=== PATIENT | female | born 1945 | race Caucasian/White ===

== ENCOUNTER 2016-09-23 09:58 | Emergency (ER) | payer MEDICARE, OTHER ==
[~2016-09-23] VITALS: Ht 154.9 cm; Wt 75.0 kg
[~2016-09-23 09:58] MED LIST: HYDR12.57 PO; LISI10TA3 PO; LOVA40TA PO; MELO-1 PO
[2016-09-23 10:00] VITALS: BP 136/71; PULSE 69; RESP 15; TEMP 97.9; O2SAT 98
--- NOTE | 2016-09-23 11:37 | RADRPT ---
EXAM DATE/TIME: 09/23/2016 11:33 [facility] COMPARISON: No previous studies available for comparison. INDICATIONS : Left knee pain after playing water polo last night. MEDICAL HISTORY : None. SURGICAL HISTORY : None. ENCOUNTER: Initial ACUITY: 2 days PAIN SCORE: 8/10 LOCATION: Left Knee. FINDINGS: Four view examination of the left knee demonstrates no evidence of fracture or dislocation. Bony min eralization is normal. The articular surfaces are intact. The suprapatellar soft tissues have a nor mal configuration. CONCLUSION: Negative for fracture or dislocation. Followup in 7-10 days is suggested if symptoms persist. Zachary Franco MD FACR on September 23, 2016 at 11:34 Board Certified Radiologist. This report was verified electronically.
--- NOTE | 2016-09-23 11:48 | PD ---
HPI Chief Complaint: Musculoskeletal Complaint Time Seen by Provider: 11:47 Travel History International Travel<30 days: No Contact w/Intl Traveler<30days: No Traveled to known affect area: No History of Present Illness HPI 70-year-old female presents to the emergency department with complaint of left hip pain and left knee pain after playing water polo last night. She is also complaining of a muscle spasm in her left mid back just below her scapula. Denies traumatic injury. Denies paresthesias, loss of sensation, decreased range of motion, decreased strength to the affected extremity. Has been ambulating on the affected extremity using a cane. Patient has leg length discrepancy that is normal for her secondary to past right hip surgery. Denies fever, chills, nausea, vomiting. Has tried using topical Naprosyn cream with some relief. Took Tylenol last night with some relief. Allergies to Crestor, codeine, penicillin, tramadol. History of hypertension and hypercholesterolemia. Dr. Crowder is primary care provider. No other modifying factors or associated signs and symptoms. PFSH Past Medical History Hypertension: Yes Social History Tobacco Use: No Allergies-Medications (Allergen,Severity, Reaction): Coded Allergies: CRESTOR (Verified Allergy, Intermediate, Muscle cramps, 09/23/16) Codeine (Verified Allergy, Intermediate, Vomiting, 09/23/16) Penicillin (Verified Allergy, Intermediate, Itching, 09/23/16) Tramadol (Verified Allergy, Intermediate, Itching, 09/23/16) Reported Meds & Prescriptions Reported Meds & Active Scripts Active Folding Walker/5" Wheels (Device) 1 Mis Mis 1 Ea .ROUTE DIRECTED Naproxen 500 Mg Tab 500 Mg PO BID PRN 7 Days Robaxin (Methocarbamol) 500 Mg Tab 500 Mg PO QID PRN Reported Lisinopril 10 Mg Tab 10 Mg PO DAILY Lovastatin 40 Mg Tab 40 Mg PO HS PRN Meloxicam 15 Mg Tab 15 Mg PO DAILY Hydrochlorothiazide 12.5 Mg Cap 12.5 Mg PO DAILY Review of Systems Except as stated in HPI: all other systems reviewed are Neg Physical Exam Narrative GENERAL: Well-nourished, well-developed elderly, female patient, in no acute distress SKIN: Warm and dry. HEAD: Atraumatic. Normocephalic. EYES: Pupils equal and round. No scleral icterus. No injection or drainage. ENT: Mucosa pink and moist. Airway patent. NECK: Trachea midline. CARDIOVASCULAR: Regular rate. RESPIRATORY: No accessory muscle use. GASTROINTESTINAL: Rounded. BACK: No midline point tenderness on palpation of the thoracic spine. Reproducible tenderness to the left trapezius muscle just below the left scapula. MUSCULOSKELETAL: Left knee is nonedematous, nonerythematous; with full range of motion and flexion to 90; no obvious deformity; the tenderness on palpation to medial and lateral aspects; joint intact with negative drawer test. Left hip is with tenderness on palpation; areas without erythema, edema, ecchymosis; with full range of motion; with tenderness on abduction; no obvious deformities. Leg length discrepancy; this is a normal finding for the patient per her report. Left lower extremity is supple and non-tense with 2+ pedal pulses and sensory intact without erythema or edema. No cyanosis. No clubbing. No obvious deformities. NEUROLOGICAL: Awake and alert. Oriented 3. No obvious cranial nerve deficits. Motor grossly within normal limits. Normal speech. PSYCHIATRIC: Appropriate mood and affect; insight and judgment normal. Data Data Last Documented VS Vital Signs Date Time Temp Pulse Resp B/P Pulse Ox O2 Delivery O2 Flow Rate FiO2 09/23/16 10:00 97.9 69 15 136/71 98 Orders Knee, Complete (4vws) (09/23/16 10:54) Hip, Uni(Ap&Lat) W Ap Pelvis (09/23/16 11:48) Ibuprofen (Motrin) (09/23/16 12:00) Methocarbamol (Robaxin) (09/23/16 12:30) Crutches (09/23/16 12:26) MDM Medical Decision Making Medical Screen Exam Complete: Yes Emergency Medical Condition: Yes Medical Record Reviewed: Yes Differential Diagnosis Muscle Strain, muscle spasm, muscle cramp, knee strain, hip strain Narrative Course 70-year-old female is ago exam consistent with left trapezius muscle spasm, left knee strain, and left hip strain after playing water polo yesterday. Denies traumatic injury. Ibuprofen and Robaxin administered in the ER. Left hip with pelvic x-ray and left knee x-ray with no acute findings. Crutches provided for support for home. Naproxen and Robaxin prescribed for home. Instructed patient to follow up if symptoms persist greater than 7-10 days and she verbalized understanding and agreement of treatment plan. Patient is medically cleared and stable for discharge. Discussed reasons to return to the emergency department. Instructed patient to follow up with primary care provider. Patient agrees with treatment plan. The patients vital signs are stable and the patient is stable for outpatient follow-up and treatment. Patient discharged home, stable and in no acute distress. Diagnosis Primary Impression: Strain of left hip Qualified Code: S76.012A - Strain of left hip, initial encounter Additional Impressions: Strain of left knee Qualified Code: S86.912A - Strain of left knee, initial encounter Spasm of thoracic back muscle Referrals: Primary Care Physician Patient Instructions: General Instructions, Hip Sprain (ED), Knee Sprain (ED), Muscle Spasm (ED) Additional Instructions: Tylenol or ibuprofen as needed and as directed to reduce pain and inflammation Robaxin as prescribed and as needed for muscle spasms Heating pad or cool compress to affected area to reduce pain and spasms Rest, ice, compress, and elevate extremity to decrease pain and inflammation Knee Brace for support Crutches and/or walker for support Avoid aggravating activity; increase activity as tolerated Follow-up with primary care provider Follow-up with orthopedic as needed Return to the emergency department immediately with worsening symptoms Med/Other Pt SpecificInfo: Prescription(s) given Scripts Folding Walker/5" Wheels 1 Mis Mis #1 Ea .route As Directed Prov:Yanira Mccullough 09/23/16 Naproxen 500 Mg [id number] Mg PO BID PRN (PAIN SCALE 1 TO 10) 7 Days Ref 0 Prov:Yanira Mccullough 09/23/16 Methocarbamol (Robaxin)500 Mg [id number] Mg PO QID PRN (MUSCLE SPASM) #30 TAB Ref 0 Prov:Yanira Mccullough 09/23/16 Disposition: DISCHARGE HOME Condition: Stable Yanira Mccullough Sep 23, 2016 11:47
[2016-09-23] MEDS ORDERED: IBUPROFEN 800 MG TAB PO ONE (12:00)
--- NOTE | 2016-09-23 12:22 | RADRPT ---
EXAM DATE/TIME: 09/23/2016 12:08 [facility] COMPARISON: No previous studies available for comparison. INDICATIONS : Left hip pain after swimming. MEDICAL HISTORY : None. SURGICAL HISTORY : Right total hip replacement. ENCOUNTER: Initial ACUITY: 2 days PAIN SCORE: 8/10 LOCATION: Left hip FINDINGS: There are degenerative changes evident. Alignment is anatomic. Fracture is not appreciated. CONCLUSION: Degenerative changes without fracture. Zachary Franco MD FACR on September 23, 2016 at 12:20 Board Certified Radiologist. This report was verified electronically.
[2016-09-23] MEDS ORDERED: ROBA500T PO ×2 (12:30→12:35)
[2016-09-23] MEDS ORDERED: NAPR500T PO ×2 (12:30→12:35)
[2016-09-23] MEDS ORDERED: METHOCARBAMOL 500 MG TAB PO ONE (12:30)
[2016-09-23] MEDS ORDERED: MISC-274 (12:35)
[2016-10-14] MEDS ORDERED: LOVA40TA PO (10:15)
[2016-10-14] MEDS ORDERED: LISI10TA3 PO (10:16)
[2016-10-14] MEDS ORDERED: HYDR12.57 PO (10:16)
[2016-10-23] MEDS ORDERED: LOVA40TA PO (12:32)
[2016-10-24] MEDS ORDERED: LOVA40TA PO (14:33)
[2016-11-10] MEDS ORDERED: CLIN1CAP6 PO (11:51)
== END 2016-09-23 13:14 | disposition home or self-care (01) ==
LOC: NEPB 09:58
DX: S76.012A Strain of muscle, fascia and tendon of left hip, initial encounter (principal); M62.838 Other muscle spasm; I10 Essential (primary) hypertension; X58.XXXA Exposure to other specified factors, initial encounter; Y93.69 Activity, other involving other sports and athletics played as a team or group
CPT/HCPCS: 73502; 73564; 99283; E0113

== ENCOUNTER 2017-02-04 10:46 | Emergency (ER) | payer MEDICARE ==
[~2017-02-04 10:46] MED LIST changes: +CLIN1CAP6 PO; +MISC-274; +NAPR500T PO; +ROBA500T PO
[2017-02-04 10:49] VITALS: BP 128/59; PULSE 90; RESP 20; TEMP 98.2; O2SAT 98
--- NOTE | 2017-02-04 11:12 | PD ---
Physical Exam Time Seen by Provider: 11:09 Narrative 71yo F c/o back pain, cough, sore throat, increased urination, dizziness for a few days. Took a clindamycin this morning for a dental appointment to day for a cleaning. Patient seen in triage. VS reviewed. Awaiting bed placement. Data Data Last Documented VS Vital Signs Date Time Temp Pulse Resp B/P Pulse Ox O2 Delivery O2 Flow Rate FiO2 02/04/17 10:49 98.2 90 20 128/59 98 Room Air MDM Supervised Visit with ANGELIC: Yanira Barraza Feb 04, 2017 11:12
--- NOTE | 2017-02-04 11:46 | PD ---
HPI . Cold symptoms Chief Complaint: Cold / Flu Symptoms Time Seen by Provider: 11:25 Travel History International Travel<30 days: No Contact w/Intl Traveler<30days: No Traveled to known affect area: No History of Present Illness HPI Patient presents with a 2 day history of cold symptoms. She states that it started with a sore throat. She also has nasal congestion, rhinorrhea, cough and myalgias, dizziness and frequency of urination. She does admit that she's been drinking a lot of fluid for her cold. She denies any dysuria or urgency. She states that her cough is productive of green to brown sputum. She describes her throat pain as constant and rates it as 5/10. She reports that she has been treating her cold with vitamin C, and [id number] cough syrup and lots of fluids. PFSH Past Medical History Cardiovascular Problems: Yes Diminished Hearing: No Hypertension: Yes Musculoskeletal: Yes Tetanus Vaccination: > 5 Years Influenza Vaccination: No ?: Not Menopausal: Yes Past Surgical History Cardiac Surgery: Yes Oral Surgery: Yes (right hip sx ) Pacemaker: Yes Other Surgery: Yes (mastectomy left side ) Social History Alcohol Use: Yes (ocassionally) Tobacco Use: No Substance Use: No Allergies-Medications (Allergen,Severity, Reaction): Coded Allergies: CRESTOR (Verified Allergy, Intermediate, swelling, 02/04/17) Codeine (Verified Allergy, Intermediate, swelling, 02/04/17) Penicillin (Verified Allergy, Intermediate, Itching, 11/10/16) Tramadol (Verified Allergy, Intermediate, Itching, 11/10/16) Reported Meds & Prescriptions Reported Meds & Active Scripts Active Lovastatin 40 Mg Tab 40 Mg PO HS Hydrochlorothiazide 12.5 Mg Cap 12.5 Mg PO DAILY Lisinopril 10 Mg Tab 10 Mg PO DAILY Reported Meloxicam 15 Mg Tab 15 Mg PO DAILY Review of Systems Except as stated in HPI: all other systems reviewed are Neg General / Constitutional: No: Fever, Chills HENT: Positive: Sore Throat, Congestion Respiratory: Positive: Cough, No: Shortness of Breath Gastrointestinal: No: Nausea, Vomiting, Diarrhea Genitourinary: Positive: Frequency, No: Urgency, Dysuria Musculoskeletal: Positive: Myalgias Physical Exam Narrative GENERAL: Awake and alert and in no acute distress. SKIN: Warm and dry. HEAD: Atraumatic. Normocephalic. EYES: Pupils equal and round. ENT: Scant mucopurulent discharge from the nose. Pharynx had no erythema, tonsillar enlargement or exudate. NECK: Trachea midline. No cervical lymphadenopathy. CARDIOVASCULAR: Regular rate and rhythm. RESPIRATORY: No accessory muscle use. Lungs sound clear with full air movement throughout. GASTROINTESTINAL: Abdomen soft, non-tender, nondistended. MUSCULOSKELETAL: No obvious deformities. No edema. NEUROLOGICAL: Awake and alert. No obvious cranial nerve deficits. Motor grossly within normal limits. Normal speech. PSYCHIATRIC: Appropriate mood and affect; insight and judgment normal. Data Data Last Documented VS Vital Signs Date Time Temp Pulse Resp B/P Pulse Ox O2 Delivery O2 Flow Rate FiO2 02/04/17 11:39 18 99 Room Air 02/04/17 10:49 98.2 90 128/59 Orders Group A Rapid Strep Screen (02/04/17 11:32) Strep Culture (Group A) (02/04/17 11:40) MDM Medical Decision Making Medical Screen Exam Complete: Yes Emergency Medical Condition: Yes Differential Diagnosis Differential diagnosis includes but is not limited to influenza, upper respiratory infection, bronchitis, pneumonia Narrative Course Patient presents for evaluation of cold symptoms. I have ordered a strep screen to rule out strep throat. Her exam is most consistent with a common cold. Rapid strep screen is negative. Diagnosis Primary Impression: Upper respiratory infection Qualified Code: J06.9 - Viral upper respiratory tract infection Patient Instructions: Cold Symptoms (ED), General Instructions Additional Instructions: I recommend the use of a Neti Pot. You may use a nasal spray such as Afrin for up to 3 days as needed for nasal congestion. You may take an zfey-nhs-[id number] antihistamine such as Zyrtec, Shabnam or Claritin as needed for runny secretions. You may take pseudoephedrine as needed for congestion. You will need to sign for this at the pharmacy. You may take plain Mucinex, 1200 mg twice a day as needed for thick secretions. You may take a cough syrup such as Delsym as needed for cough. Motrin as needed for fever and body aches. Throat lozenges/sprays as needed for sore throat. Warm salt water gargles for sore throat. Hot tea with lemon and honey also helps soothe a sore throat. Disposition: 01 DISCHARGE HOME Condition: Stable Oeters,Kristen Diamond MD Feb 04, 2017 11:46
[2017-02-04 12:29] VITALS: BP 120/67; TEMP 97.7
== END 2017-02-04 12:29 | disposition home or self-care (01) ==
LOC: NEPD 10:46
DX: J06.9 Acute upper respiratory infection, unspecified (principal); I10 Essential (primary) hypertension
CPT/HCPCS: 87081; 87880; 99283

== ENCOUNTER 2017-06-14 16:19 | Observation (INO) | payer MEDICARE ==
[~2017-06-14] VITALS: Ht 152.4 cm; Wt 73.6 kg
[~2017-06-14 16:19] MED LIST changes: -CLIN1CAP6 PO; -MISC-274; -NAPR500T PO; -ROBA500T PO
[2017-06-14 16:23] VITALS: BP 162/73; PULSE 94; RESP 16; TEMP 97.8; O2SAT 100
[2017-06-14] MEDS ORDERED: ASPIRIN 81 MG CHEW TAB PO ONE (19:00)
[2017-06-14] MEDS ORDERED: SODIUM CHLORIDE 0.9% FLUSH 10 ML FLUSH IVF PRN (19:00)
--- NOTE | 2017-06-14 19:03 | PD ---
HPI Chief Complaint: Pain: Acute or Chronic Time Seen by Provider: 18:53 Travel History International Travel<30 days: No Contact w/Intl Traveler<30days: No Traveled to known affect area: No History of Present Illness HPI 71-year-old female with history of hypertension, hyperlipidemia, pacemaker, followed by health and safety tech Dr. Urbina, here for an episode of chest discomfort. The patient reports that while shopping at around 4-4:30 PM this evening the patient experienced cramping sensation in her chest that radiated to her back and up into her jaw. This lasted for about an hour. She denies any known history of cardiac disease. At time of assessment she is pain-free. She became short of breath and slightly diaphoretic during this episode. No paresthesias or motor deficits. No fevers, chills, cough, or recent illness. No history of DVT or PE. PFSH Past Medical History Hx Anticoagulant Therapy: No Cardiovascular Problems: Yes (HTN, CHOL, PACER) High Cholesterol: Yes Diabetes: No Diminished Hearing: No Hypertension: Yes Musculoskeletal: Yes Tetanus Vaccination: Unknown Influenza Vaccination: No ?: Not Menopausal: Yes Past Surgical History Appendectomy: Yes Cardiac Surgery: Yes (PACER) Joint Replacement: Yes (RIGHT HIP, ) Oral Surgery: Yes (right hip sx ) Pacemaker: Yes Other Surgery: Yes (LEFT MASECTOMY, ) Social History Alcohol Use: Yes (SOCIALLY) Tobacco Use: No Substance Use: No Allergies-Medications (Allergen,Severity, Reaction): Coded Allergies: codeine (Unverified Allergy, Intermediate, swelling, 06/14/17) penicillin G (Unverified Allergy, Intermediate, Itching, 06/14/17) rosuvastatin (Unverified Allergy, Intermediate, swelling, 06/14/17) tramadol (Unverified Allergy, Intermediate, Itching, 06/14/17) Reported Meds & Prescriptions Reported Meds & Active Scripts Active Lisinopril 10 Mg Tab 10 Mg PO DAILY Hydrochlorothiazide 12.5 Mg Cap 12.5 Mg PO DAILY Lovastatin 40 Mg Tab 40 Mg PO HS Review of Systems Except as stated in HPI: all other systems reviewed are Neg Physical Exam Narrative GENERAL: Well-developed, well-nourished, comfortable, no apparent distress. SKIN: Focused skin assessment warm/dry. HEAD: Atraumatic. Normocephalic. EYES: Pupils equal and round. No scleral icterus. No injection or drainage. ENT: No nasal bleeding or discharge. Mucous membranes pink and moist. NECK: Trachea midline. No JVD. CARDIOVASCULAR: Regular rate and rhythm. Distal pulses brisk and equal bilaterally. RESPIRATORY: No accessory muscle use. Clear to auscultation. Breath sounds equal bilaterally. GASTROINTESTINAL: Abdomen soft, non-tender, nondistended. MUSCULOSKELETAL: No obvious deformities. No clubbing. No cyanosis. No edema. NEUROLOGICAL: Awake and alert. No obvious cranial nerve deficits. Motor grossly within normal limits. Normal speech. PSYCHIATRIC: Appropriate mood and affect; insight and judgment normal. Data Data Last Documented VS Vital Signs Date Time Temp Pulse Resp B/P (MAP) Pulse Ox O2 Delivery O2 Flow Rate FiO2 06/14/17 20:07 72 18 150/76 (100) 99 Room Air 06/14/17 16:23 97.8 Orders Orders Electrocardiogram (06/14/17 16:36) Electrocardiogram (06/14/17 18:58) Basic Metabolic Panel (Bmp) (06/14/17 18:58) Ckmb (Isoenzyme) Profile (06/14/17 18:58) Complete Blood Count With Diff (06/14/17 18:58) Magnesium (Mg) (06/14/17 18:58) Prothrombin Time / Inr (Pt) (06/14/17 18:58) Act Partial Throm Time (Ptt) (06/14/17 18:58) Troponin I (06/14/17 18:58) Chest, Single Ap (06/14/17 18:58) Ecg Monitoring (06/14/17 18:58) Iv Access Insert/Monitor (06/14/17 18:58) Oximetry (06/14/17 18:58) Aspirin Chew (Aspirin Chew) (06/14/17 19:00) Sodium Chloride 0.9% Flush (Ns Flush) (06/14/17 19:00) CKMB (06/14/17 19:30) CKMB% (06/14/17 19:30) Place In Observation (06/14/17 20:11) Activity Bed Rest With Brp (06/14/17 20:11) Vital Signs (Adult) Q4H (06/14/17 20:11) Cardiac Rhythm .As Directed (06/14/17 20:11) Notify Dr: Other .PRN (06/14/17 20:11) Notify Dr. Parameters (06/14/17 20:11) Resp Oxygen Nasal Cannula (06/14/17 ) Diet Npo (06/15/17 Breakfast) Ckmb (Isoenzyme) Profile (06/14/17 22:30) Ckmb (Isoenzyme) Profile (06/15/17 01:30) Troponin I (06/14/17 22:30) Troponin I (06/15/17 01:30) Electrocardiogram (06/14/17 22:30) Electrocardiogram (06/15/17 01:30) ^ Obtain (06/14/17 20:11) Sodium Chloride 0.9% Flush (Ns Flush) (06/14/17 20:15) Sodium Chloride 0.9% Flush (Ns Flush) (06/14/17 21:00) Talk Show Host / Telemetry [id number] (06/14/17 20:11) Enalaprilat Inj (Vasotec Inj) (06/14/17 20:15) Labs Laboratory Tests Test 06/14/17 19:30 White Blood Count 9.5 TH/MM3 Red Blood Count 4.11 MIL/MM3 Hemoglobin 12.2 GM/DL Hematocrit 36.1 % Mean Corpuscular Volume 87.8 FL Mean Corpuscular Hemoglobin 29.8 PG Mean Corpuscular Hemoglobin Concent 33.9 % Red Cell Distribution Width 13.3 % Platelet Count 273 TH/MM3 Mean Platelet Volume 6.9 FL Neutrophils (%) (Auto) 72.5 % Lymphocytes (%) (Auto) 21.4 % Monocytes (%) (Auto) 3.8 % Eosinophils (%) (Auto) 1.8 % Basophils (%) (Auto) 0.5 % Neutrophils # (Auto) 6.9 TH/MM3 Lymphocytes # (Auto) 2.0 TH/MM3 Monocytes # (Auto) 0.4 TH/MM3 Eosinophils # (Auto) 0.2 TH/MM3 Basophils # (Auto) 0.0 TH/MM3 CBC Comment DIFF FINAL Differential Comment Prothrombin Time 10.6 SEC Prothromb Time International Ratio 1.0 RATIO Activated Partial Thromboplast Time 26.9 SEC Blood Urea Nitrogen 26 MG/DL Creatinine 0.96 MG/DL Random Glucose 82 MG/DL Calcium Level 9.0 MG/DL Magnesium Level 2.2 MG/DL Sodium Level 139 MEQ/L Potassium Level 3.8 MEQ/L Chloride Level 103 MEQ/L Carbon Dioxide Level 29.1 MEQ/L Anion Gap 7 MEQ/L Estimat Glomerular Filtration Rate 57 ML/MIN Total Creatine Kinase 196 U/L Creatine Kinase MB 2.5 NG/ML Creatine Kinase MB % 1.3 % Troponin I LESS THAN 0.02 NG/ML MDM Medical Decision Making Medical Screen Exam Complete: Yes Emergency Medical Condition: Yes Interpretation(s) EKG: Electronic ventricular paced at a rate of 70 Differential Diagnosis ACS, pneumothorax, peritonitis, PE, pneumonia, musculoskeletal pain Narrative Course Vital signs show heart rate 94, blood pressure 162/73, pulse ox 100% on room air , oral temp of 97.8F. CBC is unremarkable. BMP is unremarkable. Troponin is negative. Total CK is 196. Chest x-ray shows no acute disease. Patient was made aware of all findings. She was given a full aspirin. She has history of hypertension and hyperlipidemia. She has been pain-free while in the emergency department. I believe she is a good candidate for further cardiac evaluation in the chest pain center. She is amenable to this plan. Case discussed with hospitalist Dr. Gamez who will admit the patient to her service. Diagnosis Primary Impression: Chest pain Qualified Codes: R07.9 - Chest pain, unspecified Admitting Information Admitting Physician Requests: Eze Harris MD Jun 14, 2017 19:03
[2017-06-14 19:35] LABS: AUTOMATED NEUTROPHIL # 6.9 TH/MM3 (1.8-7.7); BASOPHIL % 0.5 % (0.0-2.0); EOSINOPHIL # 0.2 TH/MM3 (0-0.4); EOSINOPHIL % 1.8 % (0.0-4.0); HEMATOCRIT 36.1 % (35.0-46.0); HEMO FLAGS DIFF FINAL; LYMPH % 21.4 % (9.0-44.0); MEAN CELL VOLUME 87.8 FL (80.0-100.0); MEAN CORPUSCULAR HEMOGLOBIN 29.8 PG (27.0-34.0); MEAN CORPUSCULAR HGB CONC 33.9 % (32.0-36.0); MONO % 3.8 % (0.0-8.0); NEUT % 72.5 % (16.0-70.0); PLATELET COUNT 273 TH/MM3 (150-450); RED BLOOD COUNT 4.11 MIL/MM3 (4.00-5.30); RED CELL DISTRIBUTION WIDTH 13.3 % (11.6-17.2); WHITE BLOOD COUNT 9.5 TH/MM3 (4.0-11.0)
--- NOTE | 2017-06-14 19:43 | RADRPT ---
EXAM DATE/TIME: 06/14/2017 19:26 [facility] COMPARISON: No previous studies available for comparison. INDICATIONS : Chest pain. MEDICAL HISTORY : Hypertension. SURGICAL HISTORY : Mastectomy, left. Pacemaker. ENCOUNTER: Initial ACUITY: 1 day PAIN SCORE: 4/10 LOCATION: Bilateral chest FINDINGS: Pacemaker device is noted with control pack over the left chest. Lungs are clear. No pleural effusion is evident. Cardiac contours are satisfactory. CONCLUSION: No acute disease. Peter Black MD on June 14, 2017 at 19:41 Board Certified Radiologist. This report was verified electronically.
[2017-06-14 19:44] LABS: CHLORIDE 103 MEQ/L (98-107); POTASSIUM 3.8 MEQ/L (3.5-5.1); SODIUM (NA) 139 MEQ/L (136-145)
[2017-06-14 19:47] LABS: ANION GAP 7 MEQ/L (5-15); BICARBONATE 29.1 MEQ/L (21.0-32.0); MAGNESIUM 2.2 MG/DL (1.5-2.5)
[2017-06-14 19:48] LABS: APTT (PATIENT) 26.9 SEC (24.3-30.1); BLOOD UREA NITROGEN 26 MG/DL (7-18); PROTHROMBIN TIME - PATIENT 10.6 SEC (9.8-11.6)
[2017-06-14 19:51] LABS: GLOMERULAR FILTRATION RATE 57 ML/MIN (>89)
[2017-06-14 19:54] LABS: CREATINE KINASE 196 U/L (26-192)
[2017-06-14 19:59] VITALS: O2SAT 99
[2017-06-14 20:07] VITALS: BP 150/76; PULSE 72; RESP 18; O2SAT 99
[2017-06-14 20:07] LABS: CKMB 2.5 NG/ML (0.5-3.6)
[2017-06-14] MEDS ORDERED: ENALAPRILAT 2.5 MG/2 ML VIAL IV PUSH PRN (20:15)
[2017-06-14] MEDS ORDERED: SODIUM CHLORIDE 0.9% FLUSH 10 ML FLUSH IV FLUSH PRN (20:15)
[2017-06-14 20:18] VITALS: O2SAT 98
[2017-06-14] MEDS: SODIUM CHLORIDE 0.9% FLUSH 10 ML FLUSH IV FLUSH SCH (21:11)
[2017-06-14 21:12] VITALS: BP 155/72; PULSE 77; RESP 18; O2SAT 99
[2017-06-14 21:49] VITALS: BP 131/62; PULSE 69; RESP 18; TEMP 97.1; O2SAT 100
[2017-06-14 23:05] LABS: CREATINE KINASE 164 U/L (26-192)
[2017-06-14 23:17] LABS: CKMB 2.1 NG/ML (0.5-3.6)
[2017-06-15] VITALS: BP 142/63; PULSE 68; RESP 18; TEMP 97.7; O2SAT 98
[2017-06-15 02:01] LABS: CREATINE KINASE 150 U/L (26-192)
[2017-06-15 02:14] LABS: CKMB 1.9 NG/ML (0.5-3.6)
[2017-06-15 04:00] VITALS: BP 105/62; PULSE 69; RESP 18; TEMP 97.3; O2SAT 98
[2017-06-15 07:16] VITALS: PULSE 63
[2017-06-15 07:39] VITALS: O2SAT 97
[2017-06-15 08:00] VITALS: BP 130/60; PULSE 67; RESP 16; TEMP 96.4; O2SAT 98
[2017-06-15] MEDS: SODIUM CHLORIDE 0.9% FLUSH 10 ML FLUSH IV FLUSH SCH (09:00)
--- NOTE | 2017-06-15 09:27 | HHI.HP ---
[facility] Harshal Crowder MD Admission Diagnosis chest pain Diagnoses: (1) Spasm of thoracic back muscle (2) Chest pain Chief Complaint: Chest pain Travel History International Travel<30 Days: No Contact w/Intl Traveler <30 Da: No Traveled to Known Affected Are: No History of Present Illness Written by Hoda Castillo, acting as scribe for Dr. Parham on 06/15/17 at 09: 16. Mrs. Garcia is a 71-year-old female patient with a known medical history of hypertension, hyperlipidemia, and pacemaker placement who presented to the ED with complaints of chest pain. Patient states she was walking in the store pushing a cart when around 1500 she began to have lower back pain which radiated to her right breast and bilateral jaw. She states that the pain was mild at first and progressively got worse, cramping and tight in nature. Denies any alleviating factors and states that while driving and sitting still the pain got worse. Denies any associated nausea and vomiting. Does admit to diaphoresis and difficulty breathing. Patient states the pain was a 6/10 when the pain began and worsened until she arrived to the ED around 1620. Patient was given full strength aspirin which seemed to relieve the pain. She follows with Dr. 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 Denies any prior cardiac catheterization. At this time patient denies any current chest pain. Denies any recent illness including fever, chills , headache, dizziness, blurry vision, lightheadedness, cough, shortness of breath, ab pain, n/v/d or dysuria. Review of Systems Constitutional: DENIES: Fever, Chills Respiratory: DENIES: Cough, Sputum production, Shortness of breath Cardiovascular: COMPLAINS OF: Chest pain, Palpitations Gastrointestinal: DENIES: Abdominal pain, Constipation, Diarrhea, Nausea, Vomiting Psychiatric: COMPLAINS OF: Anxiety Except as stated in HPI: all other systems reviewed are Neg Past Family Social History Past Medical History Hypertension Hyperlipidemia Pacemaker in place Past Surgical History Pacemaker placement Left mastectomy for history of breast CA with radiation and chemotherapy. Appendectomy Right hip replacement Right knee replacement Hysterectomy Tonsillectomy Reported Medications Active Lisinopril 10 Mg Tab 10 Mg PO DAILY Hydrochlorothiazide 12.5 Mg Cap 12.5 Mg PO DAILY Lovastatin 40 Mg Tab 40 Mg PO HS Allergies: Coded Allergies: codeine (Unverified Allergy, Intermediate, swelling, 06/14/17) penicillin G (Unverified Allergy, Intermediate, Itching, 06/14/17) rosuvastatin (Unverified Allergy, Intermediate, swelling, 06/14/17) tramadol (Unverified Allergy, Intermediate, Itching, 06/14/17) Active Ordered Medications Current Medications Medications (Trade) Dose Ordered Sig/David Route Start Time Stop Time Status Last Admin (NS Flush) 2 ml UNSCH PRN IV FLUSH 06/14/17 20:15 (NS Flush) 2 ml BID IV FLUSH 06/14/17 21:00 06/14/17 21:11 (Vasotec Inj) 2.5 mg Q6H PRN IV PUSH 06/14/17 20:15 (Flu (Quadrivalent) Vaccine Inj) 0.5 ml ONCE ONCE IM 06/15/17 10:00 06/15/17 10:01 Family History Patient's brothers all have a significant medical history of cardiovascular disease. Social History Patient denies any current or previous tobacco use. Admits to socially drinking alcohol. Denies any illicit drug use. Physical Exam Vital Signs Vital Signs Date Time Temp Pulse Resp B/P (MAP) Pulse Ox O2 Delivery O2 Flow Rate FiO2 06/15/17 07:39 97 21 06/15/17 04:00 97.3 69 18 105/62 (76) 98 06/15/17 00:00 97.7 68 18 142/63 (89) 98 06/14/17 21:49 97.1 69 18 131/62 (85) 100 06/14/17 21:27 77 18 99 06/14/17 21:12 77 18 155/72 (99) 99 Room Air 06/14/17 20:18 98 21 06/14/17 20:07 72 18 150/76 (100) 99 Room Air 06/14/17 19:59 99 06/14/17 19:15 77 18 06/14/17 16:23 97.8 94 16 162/73 102) 100 Physical Exam GENERAL: This is a well-nourished, well-developed female patient, lying in bed in no apparent distress. SKIN: No rashes, ecchymoses or lesions. Warm and dry. HEENT: Atraumatic. Normocephalic. Pupils equal round and reactive. Extraocular motions intact. No scleral icterus. No injection or drainage. Nose without bleeding. Throat without erythema, tonsillar hypertrophy or exudate. Uvula midline. Airway patent. NECK: Trachea midline. No JVD. Supple. CARDIOVASCULAR: Regular rate and rhythm without murmurs, gallops, or rubs. Tenderness to palpation around pacemaker and breast implant. RESPIRATORY: Clear to auscultation. Breath sounds equal bilaterally. No wheezes , rales, or rhonchi. GASTROINTESTINAL: Abdomen soft, non-tender, nondistended. No guarding. MUSCULOSKELETAL: Extremities without clubbing, cyanosis, or edema. No joint tenderness, effusion, or edema noted. NEUROLOGICAL: Awake and alert. Cranial nerves II through XII intact. Motor and sensory grossly within normal limits. Five out of 5 muscle strength in all muscle groups. Normal speech. PSYCH: Mood and affect appropriate. Laboratory Laboratory Tests Test 06/14/17 19:30 06/14/17 22:18 06/15/17 01:20 White Blood Count 9.5 Red Blood Count 4.11 Hemoglobin 12.2 Hematocrit 36.1 Mean Corpuscular Volume 87.8 Mean Corpuscular Hemoglobin 29.8 Mean Corpuscular Hemoglobin Concent 33.9 Red Cell Distribution Width 13.3 Platelet Count 273 Mean Platelet Volume 6.9 Neutrophils (%) (Auto) 72.5 Lymphocytes (%) (Auto) 21.4 Monocytes (%) (Auto) 3.8 Eosinophils (%) (Auto) 1.8 Basophils (%) (Auto) 0.5 Neutrophils # (Auto) 6.9 Lymphocytes # (Auto) 2.0 Monocytes # (Auto) 0.4 Eosinophils # (Auto) 0.2 Basophils # (Auto) 0.0 CBC Comment DIFF FINAL Differential Comment Prothrombin Time 10.6 Prothromb Time International Ratio 1.0 Activated Partial Thromboplast Time 26.9 Blood Urea Nitrogen 26 Creatinine 0.96 Random Glucose 82 Calcium Level 9.0 Magnesium Level 2.2 Sodium Level 139 Potassium Level 3.8 Chloride Level 103 Carbon Dioxide Level 29.1 Anion Gap 7 Estimat Glomerular Filtration Rate 57 Total Creatine Kinase 196 164 150 Creatine Kinase MB 2.5 2.1 1.9 Creatine Kinase MB % 1.3 Troponin I LESS THAN 0.02 LESS THAN 0.02 LESS THAN 0.02 Result Diagram: 06/14/17192906/14/171929 Imaging Last Impressions Chest X-Ray 06/14/17 3558 Signed Impressions: Service Date/Time: Wednesday, June 14, 2017 19:26 - CONCLUSION: No acute disease. MD Antonia Pandey VTE Risk Assessment Antonia VTE Risk Assessment: Mod/High Risk (score >= 2) Caprini Risk Assessment Model Point Value = 1 Point Value = 2 Point Value = 3 Point Value = 5 Age 41-60 Minor surgery BMI > 25 kg/m2 Swollen legs Varicose veins or History of unexplained or recurrent spontaneous Oral contraceptives or hormone replacement Sepsis (< 1 month) Serious lung disease, including pneumonia (< 1 month) Abnormal pulmonary function Acute myocardial infarction Congestive heart failure (< 1 month) History of inflammatory bowel disease Medical patient at bed rest Age 61-74 Arthroscopic surgery Major open surgery (> 45 min) Laparoscopic surgery (> 45 min) Malignancy Confined to bed (> 72 hours) Immobilizing plaster cast Central venous access Age >= 75 History of VTE Family history of VTE Factor V Leiden Prothrombin [id number] Lupus anticoagulant Anticardiolipin antibodies Elevated serum homocysteine Heparin-induced thrombocytopenia Other congenital or acquired thrombophilia Stroke (< 1 month) Elective arthroplasty Hip, pelvis, or leg fracture Acute spinal cord injury (< 1 month) Prophylaxis Regimen Total Risk Factor Score Risk Level Prophylaxis Regimen 0-1 Low Early ambulation 2 Moderate Order ONE of the following: *Sequential Compression Device (SCD) *Heparin 5000 units SQ BID 3-4 Higher Order ONE of the following medications: *Heparin 5000 units SQ TID *Enoxaparin/Lovenox 40 mg SQ daily (WT < 150 kg, CrCl > 30 mL/min) *Enoxaparin/Lovenox 30 mg SQ daily (WT < 150 kg, CrCl > 10-29 mL/min) *Enoxaparin/Lovenox 30 mg SQ BID (WT < 150 kg, CrCl > 30 mL/min) AND/OR *Sequential Compression Device (SCD) 5 or more Highest Order ONE of the following medications: *Heparin 5000 units SQ TID (Preferred with Epidurals) *Enoxaparin/Lovenox 40 mg SQ daily (WT < 150 kg, CrCl > 30 mL/min) *Enoxaparin/Lovenox 30 mg SQ daily (WT < 150 kg, CrCl > 10-29 mL/min) *Enoxaparin/Lovenox 30 mg SQ BID (WT < 150 kg, CrCl > 30 mL/min) AND *Sequential Compression Device (SCD) Assessment and Plan Assessment and Plan Mrs. Garcia is a 71-year-old female patient with a known medical history of hypertension, hyperlipidemia, and pacemaker placement who presented to the ED with complaints of chest pain. Chest pain Chest pain is resolved. Has tenderness at site of pacemaker and breast implant. - Serial troponins reviewed and flat. Serial EKGs reviewed showing paced rhythm, no abnormal arrhythmias noted. HR 70. - CXR reviewed showing no acute disease. - CBC and BMP reviewed which were essentially unremarkable. - Spoke to patient's service control operator, Dr. Urbina, who recommended to perform a stress test in the outpatient setting. Will advise patient to make an appointment with Dr. Urbina in the next couple of days. - recommend outpt follow-up with plastic surgery to assess breast implant discomfort. Hypertension, chronic: Mildly elevated on presentation could be secondary to pain. Currently controlled. BP trends reviewed. Will discharge home with recommendations to continue home medications. Hyperlipidemia, chronic: Will continue home Lovastatin. DVT Prophylaxis: SCDs. Discussed Condition With Pt, pt's family, nurse This note was transcribed by nicko Castillo. I, Dr. Aleksandr Parham personally performed the history, physical exam, and medical decision making; and confirmed the accuracy of the information in the transcribed note. Authenticated by Dr. Aleksandr Parham on 06/15/17 at 10:27. Problem Qualifiers (1) Chest pain: Qualified Codes: R07.9 - Chest pain, unspecified Hoda Castillo Jun 15, 2017 09:27 Aleksandr Parham DO Jun 15, 2017 10:27
[2017-06-15] MEDS ORDERED: INFLUENZA VIRUS VACCINE (QUADRIVALENT) 0.5 ML SYR IM ONE (10:00)
--- NOTE | 2017-06-15 10:23 | HHI.DCPOC ---
Discharge Care Plan Diagnosis: (1) Chest pain (2) Spasm of thoracic back muscle Goals to Promote Your Health * To prevent worsening of your condition and complications * To maintain your health at the optimal level Directions to Meet Your Goals Take your medications as prescribed Follow your dietary instruction Follow activity as directed Keep your appointments as scheduled Take your immunizations and boosters as scheduled If your symptoms worsen call your PCP, if no PCP go to Urgent Care Center or Emergency Room Smoking is Dangerous to Your Health. Avoid second hand smoke Call the 24-hour hour crisis hotline for domestic abuse at Aleksandr Parham DO Jun 15, 2017 10:23
--- NOTE | 2017-06-15 15:49 | EKG ---
Date Performed: 06/15/2017 Time Performed: 01:11:25 PTAGE: 71 years EKG: ELECTRONIC VENTRICULAR PACEMAKER ABNORMAL RHYTHM ECG Compared to prior tracing no significa nt change PREVIOUS TRACING : 06/14/2017 22.22 DOCTOR: Bao Davenport Interpretating Date/Time 06/15/2017 15:48:59
--- NOTE | 2017-06-15 15:49 | EKG ---
Date Performed: 06/14/2017 Time Performed: 16:38:53 PTAGE: 71 years EKG: ELECTRONIC VENTRICULAR PACEMAKER ABNORMAL RHYTHM ECG INTERPRETATION BASED ON A DEFAULT AGE OF 40 YEARS NO PREVIOUS TRACING DOCTOR: Bao Davenport Interpretating Date/Time 06/15/2017 15:47:54
--- NOTE | 2017-06-15 15:49 | EKG ---
Date Performed: 06/14/2017 Time Performed: 22:22:43 PTAGE: 71 years EKG: ELECTRONIC VENTRICULAR PACEMAKER ABNORMAL RHYTHM ECG Compared to prior tracing no significa nt change PREVIOUS TRACING : 06/14/2017 16.38 DOCTOR: Bao Davenport Interpretating Date/Time 06/15/2017 15:48:49
[2017-06-15] MEDS ORDERED: LOVA40TA PO (16:43)
== END 2017-06-15 13:19 | disposition home or self-care (01) ==
LOC: PHED 16:19 → PHEDA 20:14 → PH3A 21:22
PROVIDERS: ADMIT Hospitalist; ATTEND Hospitalist
DX: R07.89 Other chest pain (principal); M62.830 Muscle spasm of back; M54.5 Low back pain; I10 Essential (primary) hypertension; E78.5 Hyperlipidemia, unspecified; R94.31 Abnormal electrocardiogram [ECG] [EKG]; Z95.0 Presence of cardiac pacemaker; Z85.3 Personal history of malignant neoplasm of breast; Z98.82 Breast implant status; Z96.641 Presence of right artificial hip joint; Z96.651 Presence of right artificial knee joint; Z23 Encounter for immunization
CPT/HCPCS: 71010; 80048; 82550; 82552; 83735; 84484; 85025; 85610; 85730; 93005; 99285; G0008; G0378; Q2038; 90471; 90686